=== PATIENT | female | born 1990 | race African-American/Black ===

== ENCOUNTER 2016-09-01 21:41 | Emergency (ER) | payer OTHER ==
[~2016-09-01] VITALS: Ht 177.8 cm; Wt 113.1 kg
[~2016-09-01 21:41] MED LIST: AMITRIPTYLINE H10 MG PO; CIPRO500 MG PO; MOTRIN600 MG PO; SUMATRIPTAN SUC50 MG PO
[2016-09-01] MEDS ORDERED: MOTRIN800 MG PO (23:07)
[2016-09-01] MEDS ORDERED: VALIUM5 MG PO (23:07)
[2016-09-01 23:18] VITALS: BP 151/95
== END 2016-09-01 23:19 | disposition home or self-care (01) ==
LOC: EME 21:41
DX: S39.012A Strain of muscle, fascia and tendon of lower back, initial encounter (principal); X50.0XXA Overexertion from strenuous movement or load, initial encounter; Y93.F2 Activity, caregiving, lifting; Y92.230 Patient room in hospital as the place of occurrence of the external cause; Y99.0 Civilian activity done for income or pay
CPT/HCPCS: 99281; 99284

== ENCOUNTER 2016-09-11 09:00 | Emergency (ER) | payer BC ==
[~2016-09-11] VITALS: Ht 177.8 cm; Wt 112.7 kg
[~2016-09-11 09:00] MED LIST changes: +MOTRIN800 MG PO; +VALIUM5 MG PO
[2016-09-11 10:08] LABS: ADD MIUA? YES; BILIRUBIN NEGATIVE; BLOOD NEGATIVE; COLOR STRAW ((YELLOW)); GLUCOSE (STRIP) NEGATIVE; KETONES NEGATIVE; LEUKOCYTES TRACE; NITRITE NEGATIVE; PROTEIN (STRIP) NEGATIVE; SPECIFIC GRAVITY 1.003 (1.000-1.030); UROBILINOGEN 0.2 MG/DL (0.2-1.0)
[2016-09-11 10:14] LABS: BACTERIA RARE /HPF; EPITHELIAL CELLS RARE /HPF; MUCUS TRACE /LPF; RED BLOOD CELLS 0-5 /HPF (0-5); UCUL ADDED? NO; WHITE BLOOD CELLS 0-5 /HPF (0-5)
[2016-09-11 10:14] LABS: HEMATOCRIT 38.2 % (36.0-46.0); MCH 28.9 PG (29.0-34.0); MCHC 34.6 G/DL (30.0-36.0); MCV 83.8 FL (83-99); MEAN PLAT.VOLUME 10.5 uM^3 (9.5-12.4); PLATELET COUNT 256 K/uL (156-360); RBC DIS.WIDTH-CV 12.7 % (11.8-14.6); RBC DIS.WIDTH-SD 38.5 % (39-53); RED BLOOD COUNT 4.56 M/uL (3.80-5.20); WHITE BLOOD COUNT 4.6 K/uL (4.1-10.2)
[2016-09-11 10:43] LABS: ANION GAP 10 MEQ/L (2-14); CHLORIDE 109 MEQ/L (99-109); SAMPLE HEMOLYSIS CHECK 0; SAMPLE ICTERIC CHECK 0; SAMPLE LIPEMIA CHECK 0; SODIUM 138 MEQ/L (136-147); TOTAL BILIRUBIN 0.5 MG/DL (0.0-1.0)
[2016-09-11 10:48] LABS: ALKALINE PHOSPHATASE 55 IU/L (3-129); GFR ESTIMATE (CALCULATED) > 59 mL/min/; GLUCOSE 98 mg/dL (70-99); LIPASE 15 U/L (1.0-51.0); UREA NITROGEN (BUN) 7 mg/dL (9-23)
[2016-09-11 11:05] LABS: QUANTITATIVE HCG < 4.0 MIU/ML
[2016-09-11] MEDS ORDERED: BENTYL10 MG PO (12:14)
[2016-09-11] MEDS ORDERED: ZOFRAN ODT4 MG PO (12:14)
[2016-09-11 12:24] VITALS: BP 140/84
== END 2016-09-11 12:25 | disposition home or self-care (01) ==
LOC: EME 09:00
PROVIDERS: Nurse Practitioner Family
DX: R10.31 Right lower quadrant pain (principal)
CPT/HCPCS: 74177; 80053; 81003; 83690; 84702; 85027; 99281; 99284; J2270; J2405; J7030

== ENCOUNTER 2017-03-14 01:47 | Emergency (ER) | payer BC ==
[~2017-03-14] VITALS: Ht 177.8 cm; Wt 109.6 kg
[~2017-03-14 01:47] MED LIST changes: +BENTYL10 MG PO; +ZOFRAN ODT4 MG PO
[2017-03-14 01:52] VITALS: BP 128/100
[2017-03-14 02:21] LABS: HEMATOCRIT 39.1 % (36.0-46.0); MCH 30.3 PG (29.0-34.0); MCHC 35.8 G/DL (30.0-36.0); MCV 84.6 FL (83-99); PLATELET COUNT 273 K/uL (156-360); RBC DIS.WIDTH-CV 12.7 % (11.8-14.6); RBC DIS.WIDTH-SD 38.7 % (39-53); RED BLOOD COUNT 4.62 M/uL (3.80-5.20)
[2017-03-14 02:31] LABS: CHLORIDE 112 mEq/L (99-109); POTASSIUM 3.4 mEq/L (3.7-5.4); SODIUM 140 mEq/L (136-147)
[2017-03-14 02:33] LABS: GLUCOSE 104 mg/dL (70-99)
[2017-03-14 02:36] LABS: CREATININE 0.8 mg/dL (0.6-1.3); GFR ESTIMATE (CALCULATED) > 59 mL/min/
[2017-03-14 02:37] LABS: UREA NITROGEN (BUN) 7 mg/dL (9-23)
[2017-03-14 02:41] LABS: TROP-I INTERPRETATION NEGATIVE; TROPONIN-I < 0.01 ng/mL (0.0-0.30)
[2017-03-14 06:27] LABS: ALBUMIN 4.4 g/dL (3.2-4.8)
[2017-03-14 06:30] LABS: TOTAL PROTEIN 7.3 g/dL (6.4-8.3)
[2017-03-14 06:32] LABS: TOTAL BILIRUBIN 0.4 mg/dL (0.0-1.0)
[2017-03-14 06:33] LABS: ALKALINE PHOSPHATASE 99 IU/L (3-129)
[2017-03-14 06:36] LABS: ALT (GPT) 60 IU/L (3-49); AST (GOT) 102 IU/L (2-34); DIRECT BILIRUBIN 0.2 mg/dL (0.0-0.3)
[2017-03-14 06:37] LABS: LIPASE 17 U/L (1.0-51.0)
[2017-03-14 06:43] LABS: QUANTITATIVE HCG < 4.0 MIU/ML
== END 2017-03-14 06:54 | disposition left against medical advice (07) ==
LOC: EME 01:47
DX: R10.9 Unspecified abdominal pain (principal); R07.9 Chest pain, unspecified; R19.7 Diarrhea, unspecified; Z53.21 Procedure and treatment not carried out due to patient leaving prior to being seen by health care provider
CPT/HCPCS: 80048; 80076; 81003; 83690; 84484; 84702; 85027; 93005